=== PATIENT | female | born 1955 | race Two or more races ===

== ENCOUNTER 2024-10-10 21:02 | Emergency (ER) | payer OTHER, MEDICAID, SELFPAY ==
[2024-10-10 21:04] VITALS: BMI 30.9
[2024-10-10 22:10] VITALS: BP 164/74; PULSE 74; RESP 18; TEMP 36.9; O2SAT 95
--- NOTE | 2024-10-10 22:28 | XR_ITS ---
Examination: PA chest single view TECHNIQUE: Upright PA chest single view. Standard Betadine: October 10, 2024 10:36 PM INDICATIONS: Chest pain today FINDINGS: Normal heart size Lungs are clear. The osseous structures are intact IMPRESSION: No active disease
--- NOTE | 2024-10-10 22:28 | EKG_ITS ---
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: : 1955 Requested By: Shailesh Wayne Order Number: [id number] Reading MD: Shailesh Wayne Measurements Intervals [place] Rate: 70 P: 34 [place]: 166 QRS: -17 QRSD: 120 T: 30 QT: 414 QTc: 448 Interpretive Statements SINUS RHYTHM RIGHT BUNDLE BRANCH BLOCK [120+ ms QRS DURATION, UPRIGHT V1, 40+ ms S IN I/aVL/V4/V5/V6] MODERATE VOLTAGE CRITERIA FOR LVH, CONSIDER NORMAL VARIANT [MEETS CRITERIA IN ONE OF: R(aVL), S(V1), R(V5), R(V5/V6)+S(V1)] ANTERIOR MYOCARDIAL INFARCTION , OF INDETERMINATE AGE [40+ ms Q WAVE AND/OR ST/T ABNORMALITY IN V3/V4] INFERIOR MYOCARDIAL INFARCTION , PROBABLY OLD [40+ ms Q WAVE AND/OR ST/T ABNORMALITY IN II/aVF] Compared to ECG 06/11/2023 19:14:43 Right bundle-branch block now present Sinus bradycardia no longer present Myocardial infarct finding still present /store/S0/[id number]/ecg/[id number].pdf
--- NOTE | 2024-10-10 22:28 | EDRME_ITS ---
Rapid Medical Screening Exam [facility] Arrival date/time: 10/10/24 21:02 69F with history of HTN, DM, and NSTEMI presents to ED with 1 day of lower chest/epigastric pain, possibly burning and some N/V. Patient had her Mounjaro today (no recent dose changes). Chief Complaint: Nausea/Vomiting/Diarrhea Vital signs: Vital Signs Temperature 98.4 F 10/10/24 22:10 Pulse Rate 74 10/10/24 22:10 Respiratory Rate 18 10/10/24 22:10 Blood Pressure 164/74 H 10/10/24 22:10 Pulse Oximetry (%) 95 10/10/24 22:10 Oxygen Delivery Method Room Air 10/10/24 22:10
[2024-10-10 23:15] LABS: Basophils % (Auto) 0 % (0-2.5); Eosinophils # (Auto) 0.3 Thou/mm3 (0.0-0.5); Eosinophils % (Auto) 3 % (0-10); Hemoglobin 12.7 g/dL (12.0-16.0); Immature Granulocytes % (Auto) 0 % (0-0); Immature Granulocytes Auto 0.03 Thou/mm3 (0.00-0.00); Lymphocytes # (Auto) 3.4 Thou/mm3 (1.0-4.8); Lymphocytes % (Auto) 30 % (10-50); Mean Corpuscular HGB Conc 33.4 g/dl (31.0-37.0); Mean Corpuscular Hemoglobin 28.7 pg (25.0-35.0); Mean Corpuscular Volume 86 fL (80-100); Monocytes # (Auto) 0.8 Thou/mm3 (0.0-0.8); Monocytes % (Auto) 7 % (0-12); Neutrophils # (Auto) 6.9 Thou/mm3 (1.8-7.7); Neutrophils % (Auto) 61 % (37-80); Nucleated Red Blood Cell % 0 /100 WBC (0); Platelet Count 268 Thou/mm3 (140-440); RDW Standard Deviation 40.5 fL (36.4-46.3); Red Blood Count 4.42 Miln/mm3 (4.00-5.20); White Blood Count 11.4 Thou/mm3 (3.6-11.0)
[2024-10-10 23:35] LABS: Alanine Aminotransferase 26 U/L (10-49); Albumin, Serum 4.7 gm/dL (3.4-4.8); Albumin/Globulin Ratio 1.6 (1.2-2.2); Alkaline Phosphatase 74 U/L (46-116); Anion Gap 10 (7-16); Aspartate Amino Transferase 21 U/L (0-34); BUN/Creatinine Ratio 23 Ratio (12-20); Bilirubin,Total 0.7 mg/dL (0.3-1.2); Blood Urea Nitrogen 18 mg/dL (9-23); Calcium 10.4 mg/dL (8.3-10.6); Calcium (Corrected) 10.4 mg/dL (8.5-10.1); Carbon Dioxide 30.5 mMol/L (20.0-31.0); Chloride 104 mMol/L (98-107); Creatinine (Component) 0.8 mg/dL (0.6-1.3); Estimated Creatinine Clearance 70.5 mL/min (>60); Globulin 2.9 gm/dL (2.3-3.5); Glucose 125 mg/dL (74-106); Lipase 29 U/L (12-53); Osmolality,Calculated 289 (275-295); Potassium 4.3 mMol/L (3.4-5.1); Sodium 144 mMol/L (136-145); Total Protein 7.6 gm/dL (5.7-8.2); Troponin I < 0.020 ng/mL (0.0-0.045); eGFR > 60 See Note
--- NOTE | 2024-10-11 00:57 | PC.NURSE ---
Pt to room 16 at this time from lobby; assumed care.
[2024-10-11 01:06] VITALS: BP 140/67; PULSE 63; RESP 17; O2SAT 96
--- NOTE | 2024-10-11 01:58 | EDNOTE_ITS ---
Nausea/Vomit./Diarrhea-RME/HPI General Chief complaint: Nausea/Vomiting/Diarrhea Stated complaint: I FEEL SICK Arrival date/time: 10/10/24 21:02 RME / HPI RME / HPI Narrative: 10/10/24 21:02 69F with history of HTN, DM, and NSTEMI presents to ED with 1 day of lower chest/epigastric pain, possibly burning and some N/V. Patient had her Mounjaro today (no recent dose changes). Dr. Tamayo?s Main ED Evaluation: 69yo female with pmhx DM, HTN, HLD accompanied by her daughter presents to the ED for a chief complaint of posterior neck pain. Patient states she started having neck tightness today, reporting she was unable to move her head. She states she's been feeling nauseated, shaky, and has been having palpitations. She denies any dizziness, diarrhea or any other associated symptoms. Patient states she was switched from Januvia to Mounjaro, and feels her symptoms made be due to the medication. She states she's lost 20 pounds over the last 5 months. Related Data Home Medications ?Medication ?Instructions ?Recorded ?Confirmed metformin 500 mg tablet 1,000 mg PO BID #0 tabs 12/1212/15/23 (Glucophage) Previous Rx's ?Medication ?Instructions ?Recorded aspirin 81 mg tablet,delayed 81 mg PO QDAY 30 days #0 tabs 03/03/23 release citalopram 20 mg tablet 20 mg PO QDAY 30 days #0 tab s 03/03/23 hydrochlorothiazide 25 mg tablet 25 mg PO QDAY 30 days #0 tabs 03/03/23 lisinopril 40 mg tablet 40 ml PO QDAY 3 days #0 tabs 03/03/23 metoprolol tartrate 50 mg tablet 50 mg PO QDAY 30 days #0 tabs 03/03/23 sitagliptin phosphate 100 mg 100 mg PO QDAY 30 days #0 tabs 03/03/23 tablet (Januvia) Allergies Allergy/AdvReac Type Severity Reaction Status Date / Time codeine AdvReac Severe HEART Verified 12/15/23 09:59 BEATING TOO FAST, pseudoephedrine AdvReac Severe HEART Verified 12/15/23 09:59 BEATS TOO FAST Review of Systems Review of Systems Systems Reviewed: All systems reviewed, normal except as documented Narrative Review of Systems: Gen: No fever, no chills, no weight loss EYES: No discharge, no visual changes, no pain HEENT: No ear pain, no congestion, no sore throat, + neck pain PULM: No shortness of breath, no cough, no congestion CV: No chest pain, no dyspnea on exertion, + palpitations GI: + nausea, no vomiting, no diarrhea, no pain, no constipation : No frequency, no urgency, no dysuria Musc/skel: No joint pain, no back pain Skin: No rash. Warm and dry. Psyc: No hallucinations, no depression Heme/Lymph: No easy bleeding or bruising tendencies Neuro: No weakness, no headache Past Medical History Past Medical History NEUROLOGIC: Negative Seizures CARDIAC: Positive Hypercholesterolemia and Hypertension; Negative Cardiac Disorders or Congestive Heart Failure RESPIRATORY: Negative Chronic Obstructive Pulmonary Disease (COPD) or Asthma GASTROINTESTINAL: Positive Gastrointestinal Disorders and Gall Bladder Disease GENITOURINARY: Negative Renal Disease ENDOCRINE: Positive Endocrine Disorders and Diabetes Mellitus Type 2; Negative Diabetes Mellitus Type 1 HEMATOLOGIC: Negative Sickle Cell Disease PSYCHO/SOCIAL: Positive Depression and Anxiety OTHER HISTORY: Negative Blood Transfusions or Anesthesia Reactions Family History FAMILY HISTORY: Negative Family Cardiac Disorders Surgical History SURGICAL: Positive Tubal Ligation Social History SMOKING STATUS: Never smoker ED Exam Narrative Physical exam: GENERAL APPEARANCE: alert and oriented x 4, well-developed, well-nourished, no acute distress VITALS: All vitals were reviewed and the pulse ox is 96% on room air, which is normal according to my interpretation. HEENT: Normocephalic, atraumatic; pupils equal, round, reactive to light; EOMI; mucous membranes pink, moist; oropharynx clear NECK: Supple LUNGS: CTABL; no wheezes, no rales, no rhonchi HEART: Regular rate, regular rhythm; normal S1, S2; no murmurs ABDOMEN: non distended; normal BS; soft, no tenderness, no guarding, no rebound; no masses, no organomegaly, no hernia BACK: no CVA tenderness EXTREMITIES: atraumatic; no edema NEUROLOGIC: awake; alert and oriented x4; cranial nerves II-XII grossly intact; no focal sensory or motor deficits PSYCHIATRIC: appropriate mood and affect SKIN: warm, dry, normal color; no rashes Course Course Course Narrative: CXR is ordered for determining the etiology of palpitations. Quality Measures none Orders Category Date Time Status EKG (ED ONLY) *Do not use* NOW Care 10/10/24 22:28 Completed EKG (ED Only) Stat Exams 10/10/24 22:28 Draft XR chest 1V portable Stat Exams 10/10/24 22:28 Completed CBC Stat Lab 10/10/24 22:50 Completed Comprehensive Metabolic Panel Stat Lab 10/10/24 22:50 Completed Lipase Stat Lab 10/10/24 22:50 Completed Troponin I Stat Lab 10/10/24 22:50 Completed Acetaminophen Tab [Tylenol ES Tab] Med 10/11/24 01:58 Discontinued 1,000 mg PO X1 ONE Ibuprofen Tab [Motrin Tab] Med 10/11/24 01:58 Discontinued 600 mg PO X1 ONE LORazepam [Ativan] Med 10/11/24 01:58 Discontinued 0.5 mg PO X1 ONE Vital Signs Vital signs: Vital Signs Temperature 98.4 F 10/10/24 22:10 Pulse Rate 74 10/10/24 22:10 Respiratory Rate 18 10/10/24 22:10 Blood Pressure 164/74 H 10/10/24 22:10 Pulse Oximetry (%) 95 10/10/24 22:10 Oxygen Delivery Method Room Air 10/10/24 22:10 Nausea/Vomiting/Diarrhea MDM Narrative MDM Narrative:: Scribe Attestation: 10/11/24 Xiomara Guerrero am scribing for and in the presence of Dr. Tamayo. Patient data External records reviewed:: [facility] previous records (Per chart review, patient has no relevant previous ED visits.) Clinical information provided by:: patient Social determinants that could affect healthcare access:: none Patient has the following chronic illnesses:: DMII, HTN, HLD How is presenting disease/condition affected by chronic disease/condition?: uneffected by Evaluation data The following diagnostics were reviewed and interpreted by me:: lab results, radiology exam(s) and EKG tracing(s) Lab and/or radiology exams considered but not ordered:: none Interpretation Summary: WBC count is 11.4, CMP is normal, troponin is normal, Lipase is normal, according to my interpretation. CXR shows normal cardiac silhouette, normal sharp diaphragmatic edge, no infiltrates, normal costophrenic angles, according to my interpretation. EKG done at 2234, NSR, rate of 70, left axis deviation, Q waves in lead III and avF, RBBB, no STEMI, according to my interpretation. Medications / Prescriptions Medications / Prescriptions considered but not ordered:: none Medication administrations:: Medication Administration History Discontinued Medications Acetaminophen (Acetaminophen 500 Mg Tablet) 1,000 mg PO X1 ONE Stop: 10/11/24 01:59 Last Admin: 10/11/24 02:08 Dose: 1,000 mg Documented By: KG Ibuprofen (Ibuprofen Tab 600 Mg Tablet) 600 mg PO X1 ONE Stop: 10/11/24 01:59 Last Admin: 10/11/24 02:09 Dose: 600 mg Documented By: KG Lorazepam (Lorazepam 0.5 Mg Tablet) 0.5 mg PO X1 ONE Stop: 10/11/24 01:59 Last Admin: 10/11/24 02:08 Dose: 0.5 mg Documented By: KG see above Consultations Consultation(s) initiated? (list below): No Diagnosis Nausea Differential Diagnosis: other (Influenza, COVID, viral URI, viral stomach flu, DKA, hyperosmolar state, anxiety) Most likely diagnosis given after review of the tests above:: see below Admission Indicated Admission indicated?: not indicated Admission Request Was there a request for admission?: No Disposition Plan Disposition Plan: Discharge Discharge Attestation Discharge Attestation: The patient and all family members were given an opportunity to ask questions and understood the discharge instructions. Discharge instructions specifically effects, indications for sooner follow up or return to the emergency department, and the expected course of current diagnosis. Patient condition: Stable Discharge Plan Plan Patient Disposition: HOME (Self Care) Disposition Comment: Stable for discharge Patient condition on transfer: Stable Prescriptions/Referrals Prescriptions/Med Rec: No Action metformin [Glucophage] 500 MG tablet 1,000 mg PO BID Qty: 0 aspirin 81 mg tablet,delayed release (DR/EC) 81 mg PO QDAY 30 Days Qty: 0 0RF citalopram 20 mg tablet 20 mg PO QDAY 30 Days Qty: 0 0RF metoprolol tartrate 50 MG tablet 50 mg PO QDAY 30 Days Qty: 0 0RF hydrochlorothiazide 25 mg tablet 25 mg PO QDAY 30 Days Qty: 0 0RF lisinopril 40 MG tablet 40 ml PO QDAY 3 Days Qty: 0 0RF Januvia 100 mg Tablet 100 mg PO QDAY 30 Days Qty: 0 0RF Referrals: Kya Briseno PA-C [Primary Care Provider] - In 1 week Problem List Clinical Impression: Nausea, Acute neck pain Patient/Caregiver Discharge Instructions Discharge Activity: activity as tolerated Education Materials: Neck Exercises: Head Lifts, Neck Exercises: Neck Flex Additional Instructions: Please return to the emergency department for any worsening or any further medical problems Otherwise you should follow-up with your primary care doctor within the next several days to discuss whether you should continue the Mounjaro Print Language: Citizen Of [place] Stand Alone Forms: [employer] Award Info., Patient Portal Info Letter
[2024-10-11 02:00] VITALS: BP 139/76; PULSE 64; RESP 18; O2SAT 98
[2024-10-11] MEDS: LORazepam 0.5 MG TABLET PO (02:08)
[2024-10-11] MEDS: ACETAMINOPHEN 500 MG TABLET 1000 MG PO (02:08)
[2024-10-11] MEDS: IBUPROFEN TAB 600 MG TABLET PO (02:09)
== END 2024-10-11 02:18 | disposition home or self-care (01) ==
PROVIDERS: Physician Assistant; Emergency Provider Emergency Medicine; PCP Physician Assistant
DX: R11.2 Nausea with vomiting, unspecified (principal); M54.2 Cervicalgia; R07.9 Chest pain, unspecified; I45.10 Unspecified right bundle-branch block; E11.9 Type 2 diabetes mellitus without complications; I10 Essential (primary) hypertension; E78.5 Hyperlipidemia, unspecified; I25.2 Old myocardial infarction
CPT/HCPCS: 36415; 71045; 80053; 83690; 84484; 85025; 93005; 99283; A9270